=== PATIENT | male | born 1990 | race Hispanic/Latino ===

== ENCOUNTER 2018-02-21 11:01 | Emergency (ER) | payer SELFPAY | END 2018-02-21 11:18 | disposition home or self-care (01) | LOC: EDH 11:01 | DX: S41.032D Puncture wound without foreign body of left shoulder, subsequent encounter (principal); Z72.0 Tobacco use; X58.XXXD Exposure to other specified factors, subsequent encounter | CPT/HCPCS: 99281 ==